=== PATIENT | male | born 1945 | race Caucasian/White ===

== ENCOUNTER 2016-03-03 08:20 | Inpatient (IN) | payer OTHER ==
[2016-02-03 10:20] VITALS: BMI 26.0
--- NOTE | 2016-02-03 11:08 | PAT Medication Instructions ---
Service Date Feb 03, 2016. Current Home Medication List Aspirin (Aspirin Ec), 81 MG PO HS Atorvastatin (Lipitor), 40 MG PO QAM Cholecalciferol (Vitamin D3), 1 CAP PO HS Cilostazol (Pletal), 100 MG PO BID Clopidogrel (Plavix), 75 MG PO QAM Metoprolol Tartrate (Lopressor) (Lopressor), 25 MG PO BID Multivitamin (Multivitamin), 1 TAB PO QPM Medication Instructions For Your Scheduled Surgery - Instructions to be given by Cardiology: Cilostazol (Pletal), 100 MG PO BID Clopidogrel (Plavix), 75 MG PO QAM - Take the following medications the morning of surgery with a sip of water OTHERWISE NOTHING TO EAT OR DRINK AFTER MIDNIGHT: Atorvastatin (Lipitor), 40 MG PO QAM Metoprolol Tartrate (Lopressor) (Lopressor), 25 MG PO BID - Take the following medications as scheduled the night before surgery: Multivitamin (Multivitamin), 1 TAB PO QPM Aspirin (Aspirin Ec), 81 MG PO HS Cholecalciferol (Vitamin D3), 1 CAP PO HS Metoprolol Tartrate (Lopressor) (Lopressor), 25 MG PO BID If you have any questions please call us at [phone] (Aparna Liao PA-C) or [phone] or [phone]
[2016-02-03 11:47] LABS: BASO % 0.4 %; BASO ABS # 0.04 K/uL (0-0.2); COMPLETE YES; EOS % 2.4 %; HEMATOCRIT 44.1 % (42-52); IG% 0.3 %; LYMPH % 24.9 %; LYMPH ABS # 2.25 K/uL (1.2-3.4); MEAN CELL VOLUME 89.8 fL (80-100); MEAN CORPUSCULAR HEMOGLOBIN 31.4 pg (25-34); MEAN CORPUSCULAR HGB CONC 34.9 g/dl (32-36); MEAN PLATELET VOLUME 9.8 fL (7.4-10.4); MONO % 7.9 %; NEUT % 64.1 %; PLATELET COUNT 244 K/uL (130-400); RED BLOOD COUNT 4.91 M/uL (4.7-6.1); WHITE BLOOD COUNT 9.03 K/uL (4.8-10.8)
[2016-02-03 12:03] LABS: PROTHROMBIN TIME (PATIENT) 11.1 SECONDS (9.0-12.0)
[2016-02-03 12:14] LABS: CREATININE 0.74 mg/dl (0.60-1.40)
[2016-02-03 12:15] LABS: BUN/CREATININE RATIO 18.9 (10-20); CALCIUM 9.2 mg/dl (8.5-10.1); POTASSIUM 4.4 mmol/L (3.5-5.1)
[2016-02-03 12:47] LABS: ESTIMATED AVERAGE GLUCOSE 120 mg/dl; HA1C FLAG Normal (Normal)
--- NOTE | 2016-02-27 21:41 | HISTORY & PHYSICAL EXAMINATION ---
DATE OF ADMISSION: 03/03/2016 SUBJECTIVE CHIEF COMPLAINT: Right shoulder pain. HISTORY OF PRESENT ILLNESS: The patient is a 70-year-old male who has had pain on and off in his right shoulder secondary to osteoarthritis and has failed conservative measures including injections, physical therapy, anti-inflammatory medications. He states that the pain is increased to the point where he is unable to perform his activities of daily living. The patient wishes to proceed with a right total shoulder arthroplasty. PAST MEDICAL HISTORY: MD on 11/03/2008, hypertension, hypercholesterolemia, mini stroke, peripheral artery disease, acid reflux, osteoarthritis, chronic back pain. PAST SURGICAL HISTORY: Includes stent placement in the circumflex artery on 11/03/2008, stent placed in the left femoral artery, left hip arthroplasty, left shoulder arthroplasty. SOCIAL HISTORY: The patient consumes 7 alcoholic beverages per week. Smokes a pack of cigarettes per day. He lives in a 2-story home and he is retired. He denies illegal or IV drug use. FAMILY HISTORY: Noncontributory. MEDICATIONS: Include Plavix 75 mg, atorvastatin 80 mg, cilostazol 100 mg, metoprolol 25 mg, vitamin D 2000 mg, aspirin low dose 81 mg, multivitamin. ALLERGIES: No known drug allergies. REVIEW OF SYSTEMS: Denies fevers, chills, headaches, weight loss, double vision, blurry vision, sore throat, hearing loss, tremors, dizziness, numbness, tingling, tired, thirsty, hot and cold intolerance, abdominal pain, nausea, vomiting, diarrhea, heartburn, chest pain, swelling into the legs or feet, frequency going to the bathroom, pain or burning with urination or incontinence, wheezing, cough, shortness of breath, depression, thoughts of harming himself or others, nervousness and anxiousness. He is positive for joint pain, stiffness and swelling in the right shoulder. OBJECTIVE: VITAL SIGNS: The patient is 6 feet tall, 195 pounds. Blood pressure 142/74. GENERAL: The patient is a 70-year-old male. He is awake, alert and oriented x3. He is well dressed, well nourished and in no acute distress. HEENT: Extraocular movements are intact. PERRLA, mucosa is moist. No septal deviation. NECK: Supple with no lymphadenopathy, no JVD or thyromegaly. HEART: Regular rate and rhythm with no gallops or murmurs. LUNGS: Clear to auscultation with no wheezing or rhonchi. ABDOMEN: Soft, nontender, nondistended. Normal bowel sounds throughout. No hepatosplenomegaly. EXTREMITIES: In particular attention to the patient's right shoulder, skin is intact without erythema. He has significant crepitus with decrease in range of motion on the right side, active forward flexion 0-90 degrees, abduction 0-90 degrees, external rotation 0-45 degrees. The patient has weakness in his rotator cuff. IMAGING: X-rays, 4 views of the patient's right shoulder show severe osteoarthritis with osteophyte formation of the inferior aspect of his humeral head, [id number] articulation. ASSESSMENT: Severe end-stage right shoulder osteoarthritis. PLAN: The patient is scheduled to have a right total shoulder arthroplasty. He has failed conservative measures including anti-inflammatories, cortisone injections and physical therapy. He is [id number] in his right shoulder and much more symptomatic currently. Risks and benefits to surgery were discussed that included but not limited to infection, DVT, pain, stiffness, need for revision surgery, damage to blood vessels, damage to nerves, failure to relieve all symptoms and anesthesia risks. The patient understands these risks and wishes to proceed. All questions were answered to his satisfaction. SIVAKUMAR
[~2016-03-03] VITALS: Ht 182.9 cm; Wt 88.6 kg
[~2016-03-03 08:20] MED LIST: ACETAMINOPHEN 500 MG TAB PO SCH; ASPI81TA28 PO; ATOR-26 PO; BUPIVACAINE/EPINEPHRINE 0.25% 1:200,000 30 ML VIAL ONE; CEFAZOLIN 2000 MG/60 ML D5W 60 ML IV SCH; CHOL2000 PO; CILO100T PO; CLOP1TAB15 PO; CeleBREX 200 MG CAP PO SCH; DEXAMETHASONE 4 MG TAB PO SCH; DEXAMETHASONE SOD INJ 4 MG/ML VIAL ONE; FAMOTIDINE 20 MG TAB PO SCH; GABAPENTIN 300 MG CAP PO SCH; LACTATED RINGER'S 1000ML 1,000 ML IV SCH; LACTATED RINGER'S 1000ML IV SCH; METO25TA56 PO; METOCLOPRAMIDE HCL 10 MG TAB PO SCH; MULT-506 PO; ROPIVACAINE 5MG/ML 30 ML 150 MG, BUPIVACAINE/EPINEPHR 0.5% MPF 30 ML, KETOROLAC TROMETH... INFIL SCH
[2016-03-03 08:39] VITALS: BP 148/70; PULSE 75; TEMP 36.4; O2SAT 97; Ht 182.9 cm; Wt 88.6 kg
--- NOTE | 2016-03-03 10:12 | History & Physical Bridge Note ---
H&P Re-Evaluation Bridge Note: I have examined the patient, reviewed the History & Physical and in the interval since the performance of the History & Physical I have noted the following changes of clinical significance: No changes noted
[2016-03-03] MEDS ORDERED: FENTANYL CITRATE INJ 50 MCG/1 ML 2 ML VIAL IV PRN (10:15)
[2016-03-03] MEDS ORDERED: HYDROmorphone INJ 1 MG/ML SYR IV PRN (10:15)
[2016-03-03] MEDS ORDERED: ATROPINE SULFATE 0.1 MG/ML 5ML SYR IV PRN (10:15)
[2016-03-03] MEDS ORDERED: ONDANSETRON INJ 2 MG/ML 2 ML VIAL IV PRN ×2 (10:15→16:15)
[2016-03-03] MEDS ORDERED: PROMETHAZINE HCL INJ 6.25 MG in SODIUM CHLORIDE 0.9% 50ML 50 ML IV PRN (10:15)
[2016-03-03] MEDS ORDERED: EpHEDrine SULFATE INJ 50 MG/ML AMP IV PRN (10:15)
[2016-03-03] MEDS ORDERED: GLYCOPYRROLATE INJ 0.2 MG/ML VIAL ONE (10:18)
[2016-03-03] MEDS ORDERED: MIDAZOLAM HCL 1 MG/ML 2ML VIAL ONE ×2 (10:18→10:19)
[2016-03-03] MEDS ORDERED: DEXAMETHASONE SOD INJ 4 MG/ML VIAL ONE (10:18)
[2016-03-03] MEDS ORDERED: FENTANYL CITRATE INJ 50 MCG/1 ML 2 ML VIAL ONE ×2 (10:18)
[2016-03-03] MEDS ORDERED: PROPOFOL IV EMULSION 10 MG/ML 20 ML VIAL IV ONE (10:18)
[2016-03-03] MEDS ORDERED: ONDANSETRON INJ 2 MG/ML 2 ML VIAL ONE (10:18)
[2016-03-03] MEDS ORDERED: NEOSTIGMINE METHYLSULFATE 5 MG/5 ML SYR ONE (10:18)
[2016-03-03] MEDS ORDERED: LIDOCAINE HCL 2% 2 ML VIAL (20MG/ML) ONE (10:18)
[2016-03-03] MEDS ORDERED: EpHEDrine SULFATE INJ 50 MG/ML AMP ONE (10:18)
[2016-03-03] MEDS ORDERED: PHENYLEPHRINE HCL INJ 10 MG/ML VIAL ONE (10:18)
[2016-03-03] MEDS ORDERED: ROCURONIUM BROMIDE 10 MG/ML 5 ML VIAL ONE (10:18)
[2016-03-03] MEDS ORDERED: ORTHO JOINT ANESTHETIC ONE (12:06)
[2016-03-03] MEDS ORDERED: LARYING-O-JET KIT (LTA) EXT ONE ×2 (14:36)
[2016-03-03] MEDS ORDERED: THROMBIN FOR SOLN 20000 UNIT KIT TOP ONE (14:43)
[2016-03-03] MEDS ORDERED: BACITRACIN 50000 UNIT VIAL IR ONE (15:51)
[2016-03-03] MEDS ORDERED: POVIDONE-IODINE OP SOLN 30 ML BTL TOP ONE (15:53)
--- NOTE | 2016-03-03 16:02 | [facility] Post Operative Brief Note ---
Immediate Operative Summary Operative Date Mar 03, 2016. Pre-Operative Diagnosis Severe End-Stage Osteoarthritis, Right Shoulder Post-Operative Diagnosis Same as preoperative, plus tear biceps Procedure(s) Performed Right Total Shoulder Arthroplasty, Augmented Glenoid, biceps tenodesis Surgeon Dr. Tacho Ford Holistic Pulser Surgeon(s) Aston Aguilar PA-C Estimated Blood Loss 100 Findings above, severe posterior glenoid wear Specimens A.) Right Humeral Head Bone Fragments Drains 1 hemovac Anesthesia geta, interscalene Complication(s) None Disposition Recovery Room / PACU
[2016-03-03] MEDS ORDERED: MAGNESIUM HYDROXIDE SUSP 30 ML UDC PO PRN (16:15)
[2016-03-03] MEDS ORDERED: METOCLOPRAMIDE HCL INJ 5 MG/ML 2 ML VIAL IV PRN (16:15)
[2016-03-03] MEDS ORDERED: ZOLPIDEM TARTRATE 5 MG TAB PO PRN (16:15)
[2016-03-03] MEDS ORDERED: ALUMINUM/MAGNESIUM SUSP 30 ML UDC PO PRN (16:15)
[2016-03-03] MEDS ORDERED: MoRPHine SULFATE 2 MG/ML CARP IV PRN (16:15)
[2016-03-03] MEDS ORDERED: OXYCODONE HCL IR 5 MG TAB (IMMEDIATE RELEASE) PO PRN (16:15)
--- NOTE | 2016-03-03 16:59 | DIAGNOSTIC IMAGING REPORT ---
RIGHT SHOULDER MIN 2 VIEWS ROUTINE CLINICAL HISTORY: Postop study. Post shoulder reduction. COMPARISON: None. DISCUSSION: There are postsurgical changes of a total right shoulder arthroplasty. There is air within soft tissues consistent with recent surgery. There are overlying skin justin. There is no dislocation. There are no acute fractures. There is mild interstitial thickening within the right lung. IMPRESSION: Postsurgical changes of a right shoulder arthroplasty. No evidence of dislocation. Electronically signed by: Larry Deluna M.D. 03/03/2016 4:58 PM Dictated Date/Time: 03/03/2016 4:56 PM
--- NOTE | 2016-03-03 17:04 | Anesthesiology Progress Note ---
Anesthesia Post Op Note Date & Time Mar 03, 2016 at 17:04 Vital Signs Pain Intensity: 0 Vital Signs Past 12 Hours Date Time Temp Pulse Resp B/P Pulse Ox O2 Delivery O2 Flow Rate FiO2 03/03/16 16:37 36.0 78 16 130/60 98 Mask 10 03/03/16 08:39 36.4 75 20 148/70 97 Room Air Notes Mental Status: alert / awake / arousable, participated in evaluation Pt Amnestic to Procedure: Yes Nausea / Vomiting: adequately controlled Pain: adequately controlled Airway Patency, RR, SpO2: stable & adequate BP & HR: stable & adequate Hydration State: stable & adequate Anesthetic Complications: no major complications apparent
[2016-03-03] MEDS ORDERED: CITRIC ACID/SODIUM CITRATE 15 ML UDC PO ONE (17:30)
[2016-03-03] MEDS ORDERED: NURSING VERBAL MED ORDER ONE (17:30)
[2016-03-03] MEDS ORDERED: FERROUS GLUCONATE 324 MG TAB PO SCH (18:00)
[2016-03-03 19:05] VITALS: BP 125/75; PULSE 93; TEMP 36.3; O2SAT 98
[2016-03-03 19:07] VITALS: BP 112/65; PULSE 80; TEMP 36.5; O2SAT 16
--- NOTE | 2016-03-03 19:15 | Medical Consult ---
History General Date of Service: Mar 03, 2016. Stated Complaint: Right Shoulder Osteoarthritis HPI The patient is a 70 year old male who presents to [facility] with complaints of Right Shoulder Osteoarthritis. The patient's primary care provider is Tommy Parry M.D.. this is a 70 yo Male with past medical hx of CAD /IN in 11/03/2008 s/p PTCA on left circumflex artery hx of PVD s/p stent placement on left femoral artery , TIA /mini stroke in 2009 with no residual neurological deficit underwent Rt total shoulder replacement surgery today for chronic severe DJD pt seen post op in room 324 denies of any pain or discomfort Rt shoulder pain well controlled , no complain of chest pain or SOB Historian: patient Review of Systems Constitutional: reports: no symptoms Eyes: reports: no symptoms ENT: reports: no symptoms Cardiovascular: reports: no symptoms Respiratory: reports: no symptoms Gastrointestinal: reports: no symptoms Genitourinary - Male: reports: no symptoms Musculoskeletal: reports: other (s/p rt shoulder surgery for chronic DJD ) Neurologic: reports: no symptoms Psychiatric: reports: no symptoms All Other Symptoms All Other Systems: Reviewed and Negative Past Medical History Past Medical History: IN on 11/03/2008 S/P PTCA in circumflex artery hypertension, hypercholesterolemia, mini stroke, peripheral artery disease, acid reflux, osteoarthritis, chronic back pain. Past Surgical History: PAST SURGICAL HISTORY: Includes stent placement in the circumflex artery on 11/03/2008, stent placed in the left femoral artery, left hip arthroplasty, left shoulder arthroplasty. Family History FH: early coronary artery disease Social History Hx Tobacco Use In Past Year?: Yes (1 PPD, X 60YEARS) Smoking Status: Current Every Day Smoker Marital status: Occupational Status: retired Allergies Coded Allergies: No Known Allergies (Unverified , 03/03/16) Current Medications Reported Home Medications Medications Dose Route/Sig Max Daily Dose Days Date Category Lopressor (Metoprolol Tartrate) 25 Mg Tab 25 Mg PO BID 02/03/16 Reported Lipitor (Atorvastatin Calcium) 80 Mg Tab 40 Mg PO QAM 02/03/16 Reported Aspirin Ec (Aspirin) 81 Mg Tab 81 Mg PO HS 04/29/15 Reported Multivitamin (Multivitamins) Tab 1 Tab PO QPM 04/29/15 Reported Vitamin D3 (Cholecalciferol) 2,000 Unit Cap 1 Cap PO HS 90 3/24/16 Reported Pletal (Cilostazol) 100 Mg Tab 100 Mg PO BID 04/29/15 Reported Plavix (Clopidogrel Bisulfate) 75 Mg Tab 75 Mg PO QAM 04/29/15 Reported Physical Physical Exam Vital Signs: Date Time Temp Pulse Resp B/P Pulse Ox O2 Delivery O2 Flow Rate FiO2 03/03/16 19:07 36.5 80 16 112/65 16 Nasal Cannula 2.0 03/03/16 19:05 36.3 93 17 125/75 98 Nasal Cannula 2.0 03/03/16 17:55 79 19 95 03/03/16 17:55 77 19 03/03/16 17:53 116/69 03/03/16 17:50 82 20 03/03/16 17:50 80 20 94 03/03/16 17:48 110/56 03/03/16 17:45 79 18 03/03/16 17:45 83 18 92 03/03/16 17:44 119/64 03/03/16 17:40 68 14 95 03/03/16 17:40 69 14 03/03/16 17:39 118/63 03/03/16 17:35 78 19 03/03/16 17:35 77 19 94 03/03/16 17:33 118/65 03/03/16 17:30 72 13 03/03/16 17:30 73 13 94 03/03/16 17:29 68 15 03/03/16 17:29 68 15 95 03/03/16 17:28 108/60 03/03/16 17:27 36.4 03/03/16 17:24 68 17 95 03/03/16 17:24 67 17 03/03/16 17:23 118/67 03/03/16 17:19 79 16 94 03/03/16 17:19 77 16 03/03/16 17:18 108/64 03/03/16 17:14 72 17 94 03/03/16 17:14 68 17 03/03/16 17:13 116/75 03/03/16 17:12 73 15 95 03/03/16 17:12 74 15 03/03/16 17:08 98/70 03/03/16 17:07 79 17 93 03/03/16 17:07 76 17 03/03/16 17:03 105/55 03/03/16 17:02 68 16 99 03/03/16 17:02 66 16 03/03/16 16:58 112/60 03/03/16 16:57 60 17 99 03/03/16 16:57 60 17 03/03/16 16:53 102/87 03/03/16 16:52 79 17 98 03/03/16 16:52 79 17 03/03/16 16:48 95/59 03/03/16 16:47 69 18 03/03/16 16:47 69 18 99 03/03/16 16:44 106/53 03/03/16 16:42 67 18 97 03/03/16 16:42 67 18 03/03/16 16:38 123/58 03/03/16 16:37 75 17 03/03/16 16:37 36.0 78 16 130/60 98 Mask 10 03/03/16 16:37 75 17 96 03/03/16 08:39 36.4 75 20 148/70 97 Room Air General Appearance: WELL-APPEARING, NO APPARENT DISTRESS Head: NORMOCEPHALIC, ATRAUMATIC Eyes: PERRLA, EOMI Neck: NORMAL RANGE OF MOTION, TRACHEA MIDLINE, SUPPLE Respiratory: BREATH SOUNDS NORMAL, CLEAR TO AUSCULTATION Cardiovasular: REGULAR RATE/RHYTHM, NORMAL S1S2 Abdomen: NON TENDER, NORMAL BOWEL SOUNDS Upper Extremities: other (rt shoulder surgery , bandage /drain present ) Lower Extremities: NO EDEMA Neuro: ALERT, ORIENTED x 3, NORMAL SPEECH Impression Assessment and Plan RT SHOULDER SURGERY : -S/P rt total shoulder arthroplasty due to severe DJD -POD # 0 -recovering well post op -post op pain adequately controlled -cont management as per Ortho HX OF CAD S/P PTCA : no complain of chest pain or SOB pt mentions 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 surgery found to be in stable cardiac condition cont all cardiac meds -Aspirin , Plavix , Beta angelo , statin HX OF TIA /MINI STROKE on Plavix , aspirin , statin PVD : on Plavix , aspirin ONGOING TOBACCO ABUSE continues to smoke 1 pk /cig a day smoking cessation counselling provided pt is updated regarding high risk of co morbidities -specially with his hx of CAD /PVD /CVA aware willing to cut down smoking not requesting nicotine patch FULL CODE DVT PROPHYLAXIS : Thank you for allowing to participate in care of the pt we will continue to follow the patient during his hospital course Dr Macias will follow the patient from tomorrow 03/04/16 Admit To Med/Surg
[2016-03-03 20:20] VITALS: BP 132/78; PULSE 87; O2SAT 93
[2016-03-03] MEDS: CEFAZOLIN IV 2,000 MG in DEXTROSE 5% 50ML 50 ML IV SCH (20:25)
[2016-03-03] MEDS: D5W AND 1/2NSS + 20MEQ KCL 1,000 ML IV SCH (20:25)
[2016-03-03] MEDS: KETOROLAC TROMETHAMINE 15 MG/ML VIAL IV. SCH (20:29)
[2016-03-03] MEDS: OXYCODONE HCL 10 MG TABCR (OXYCONTIN) PO SCH (20:31)
[2016-03-03] MEDS: CILOSTAZOL 100 MG TAB PO SCH (20:32)
[2016-03-03] MEDS: METOPROLOL TARTRATE 25 MG TAB PO SCH (20:33)
[2016-03-03] MEDS ORDERED: ASPIRIN 81 MG ECTAB PO SCH (21:00)
[2016-03-03] MEDS ORDERED: MULTIVITAMIN TAB PO SCH (21:00)
[2016-03-03] MEDS ORDERED: CHOLECALCIFEROL 1000 INTER.UNIT TAB PO SCH (21:00)
[2016-03-03 21:07] VITALS: BP 147/85; PULSE 92; O2SAT 95
[2016-03-03] MEDS: ACETAMINOPHEN 500 MG TAB PO SCH (22:00)
[2016-03-03 23:42] VITALS: BP 116/62; PULSE 81; TEMP 36.9; O2SAT 93
[2016-03-04] MEDS: KETOROLAC TROMETHAMINE 15 MG/ML VIAL IV. SCH ×2 (01:44→07:47)
[2016-03-04 03:45] VITALS: BP 133/67; PULSE 65; TEMP 36.7; O2SAT 93
[2016-03-04] MEDS: CEFAZOLIN IV 2,000 MG in DEXTROSE 5% 50ML 50 ML IV SCH (03:52)
[2016-03-04] MEDS: D5W AND 1/2NSS + 20MEQ KCL 1,000 ML IV SCH (05:41)
[2016-03-04] MEDS: ACETAMINOPHEN 500 MG TAB PO SCH (05:41)
[2016-03-04 06:26] LABS: HEMATOCRIT 34.1 % (42-52); MEAN CORPUSCULAR HEMOGLOBIN 31.3 pg (25-34); MEAN CORPUSCULAR HGB CONC 35.2 g/dl (32-36); MEAN PLATELET VOLUME 10.2 fL (7.4-10.4); PLATELET COUNT 185 K/uL (130-400); RED BLOOD COUNT 3.83 M/uL (4.7-6.1)
[2016-03-04 07:01] LABS: BUN/CREATININE RATIO 21.2 (10-20); CALCIUM 8.3 mg/dl (8.5-10.1); CREATININE 0.85 mg/dl (0.60-1.40); POTASSIUM 4.2 mmol/L (3.5-5.1)
[2016-03-04 07:28] VITALS: BP 111/67; PULSE 74; TEMP 36.7; O2SAT 93
[2016-03-04 08:00] VITALS: O2SAT 93
[2016-03-04 08:40] VITALS: BP 109/66; PULSE 83
[2016-03-04] MEDS: METOPROLOL TARTRATE 25 MG TAB PO SCH (08:41)
[2016-03-04] MEDS: OXYCODONE HCL 10 MG TABCR (OXYCONTIN) PO SCH (08:42)
[2016-03-04] MEDS: CILOSTAZOL 100 MG TAB PO SCH (08:42)
[2016-03-04] MEDS ORDERED: CLOPIDOGREL BISULFATE 75 MG TAB PO SCH (09:00)
[2016-03-04] MEDS ORDERED: MULTIVITAMIN TAB PO SCH (09:00)
[2016-03-04] MEDS ORDERED: PANTOprazole SOD 40 MG TAB PO SCH (09:00)
[2016-03-04] MEDS ORDERED: ATORVASTATIN 40 MG TAB PO SCH (09:00)
--- NOTE | 2016-03-04 09:54 | Orthopedic Progress Note ---
Orthopedic Progress Note Date of Service Mar 04, 2016. Subjective Post OP Day: 1 Reports: feeling well, pain controlled w PO medications, Denies: SOB, calf pain , chest pain, light headedness, nausea / vomiting Objective calves soft nontender, N/V intact, capillary refill less than 2 sec., dressing C /D/I, A&O x3, toes mobile, hemovac drainage Date Time Temp Pulse Resp B/P Pulse Ox O2 Delivery O2 Flow Rate FiO2 03/04/16 08:40 83 109/66 03/04/16 07:28 36.7 74 19 111/67 93 Room Air 03/04/16 03:45 36.7 65 16 133/67 93 Room Air 03/03/16 23:42 36.9 81 18 116/62 93 Room Air 03/03/16 23:25 Room Air 03/03/16 21:07 92 16 147/85 95 Room Air 03/03/16 20:20 87 16 132/78 93 Nasal Cannula 3.0 03/03/16 19:07 36.5 80 16 112/65 16 Nasal Cannula 2.0 03/03/16 19:05 36.3 93 17 125/75 98 Nasal Cannula 2.0 03/03/16 18:05 Nasal Cannula 2.0 03/03/16 18:05 98 Nasal Cannula 2.0 03/03/16 17:55 79 19 95 03/03/16 17:55 77 19 03/03/16 17:53 116/69 03/03/16 17:50 82 20 03/03/16 17:50 80 20 94 03/03/16 17:48 110/56 03/03/16 17:45 79 18 03/03/16 17:45 83 18 92 03/03/16 17:44 119/64 03/03/16 17:40 68 14 95 03/03/16 17:40 69 14 03/03/16 17:39 118/63 03/03/16 17:35 78 19 03/03/16 17:35 77 19 94 03/03/16 17:33 118/65 03/03/16 17:30 72 13 03/03/16 17:30 73 13 94 03/03/16 17:29 68 15 03/03/16 17:29 68 15 95 03/03/16 17:28 108/60 03/03/16 17:27 36.4 03/03/16 17:24 68 17 95 03/03/16 17:24 67 17 03/03/16 17:23 118/67 03/03/16 17:19 79 16 94 03/03/16 17:19 77 16 03/03/16 17:18 108/64 03/03/16 17:14 72 17 94 03/03/16 17:14 68 17 03/03/16 17:13 116/75 03/03/16 17:12 73 15 95 03/03/16 17:12 74 15 03/03/16 17:08 98/70 03/03/16 17:07 79 17 93 03/03/16 17:07 76 17 03/03/16 17:03 105/55 03/03/16 17:02 68 16 99 03/03/16 17:02 66 16 03/03/16 16:58 112/60 03/03/16 16:57 60 17 99 03/03/16 16:57 60 17 03/03/16 16:53 102/87 03/03/16 16:52 79 17 98 03/03/16 16:52 79 17 03/03/16 16:48 95/59 03/03/16 16:47 69 18 03/03/16 16:47 69 18 99 03/03/16 16:44 106/53 03/03/16 16:42 67 18 97 03/03/16 16:42 67 18 03/03/16 16:38 123/58 03/03/16 16:37 75 17 03/03/16 16:37 36.0 78 16 130/60 98 Mask 10 03/03/16 16:37 75 17 96 Laboratory Results 24 Hours: Test 03/04/16 05:52 Hematocrit 34.1 % Hemoglobin 12.0 g/dL Assessment & Plan Assessment: Right Total Shoulder Arthroplasty, Augmented Glenoid, biceps tenodesis Inhouse Planning Pain Management: Oxycontin, PO Tylenol, Oxy IR DVT Prophylaxis: TEDs, SCDs, ASA, other Discharge Planning Discharge Planning: home with oppt Pain Management: Oxycontin, PO Tylenol, Oxy IR DVT Prophylaxis: TEDs, ASA, other Therapy: Physical Therapy
[2016-03-04] MEDS ORDERED: RXC5 PO (09:56)
[2016-03-04] MEDS ORDERED: OXYSR10 PO (09:56)
[2016-03-04] MEDS ORDERED: ONDA8TAB6 PO (09:56)
[2016-03-04] MEDS ORDERED: ACET-1138 PO (09:56)
[2016-03-04] MEDS ORDERED: CLB200 PO (09:56)
--- NOTE | 2016-03-04 09:57 | Discharge Instructions ---
Discharge Instructions Admission Reason for Admission: Right Shoulder Osteoarthritis Discharge Discharge Diagnosis / Problem: Right Total Shoulder Arthroplasty, Augmented Glenoid, biceps tenodesis Discharge Goals Goal(s): Decrease discomfort, Improve function, Increase independence, Therapeutic intervention Activity Recommendations Activity Limitations: per Instructions/Follow-up section ACTIVITY RECOMMENDATIONS: SELF CARE INSTRUCTIONS AFTER TOTAL SHOULDER ARTHROPLASTY A. You may do daily exercises as taught in physical therapy while in hospital. No lifting with the operative arm. Please schedule your outpatient physical therapy appointment to begin within 2-3 days after leaving the hospital. Specific restrictions will be written on your physical therapy prescription that is provided to you. B. You are to wear your sling/immobilizer at all times EXCEPT when performing your daily exercises, participating in physical therapy and for hygiene purposes. C. You may perform dry, daily dressing changes. Please keep your incision covered. You may shower 48 hours after surgery. Do not apply soap or any ointment/ lotions directly over incision. Do not soak incision in bath tub/swimming pool. D. You may use ice as needed to operative shoulder. SPECIAL CARE INSTRUCTIONS: MEDICATION INSTRUCTIONS: *It is recommended you take Aspirin 325mg daily for four weeks post-op. VERY IMPORTANT TO READ AND REVIEW A. There are a few signs you need to watch for after you are home. Call [facility] at [phone] if you experience any of the followin. Increased severe shoulder pain. Some pain is expected especially when you exercise. 2. Increased swelling in you shoulder or arm; pain or swelling in either upper extremity. 3. Any fluid drainage from the incision. 4. Shortness of breath or chest pain. B. Please call [facility] at [phone] if you have any questions or concerns about your operation or recovery. C. Call your physician if: 1. Temperature is greater than 101 degrees (F). 2. Pain is not relieved by prescribed pain medications. 3. Increase drainage or redness from incision. 4. Unanswered questions or concerns. FOLLOW UP VISIT: Please call [facility] at [phone] to schedule a follow up appointment with Dr. Baker or his PA in 12-14 days from your surgery date. . Current Hospital Diet Patient's current hospital diet: Regular Diet Discharge Diet Recommended Diet: Regular Diet Procedures Procedures Performed: Right Total Shoulder Arthroplasty, Augmented Glenoid, biceps tenodesis Pending Studies Studies pending at discharge: no Laboratory Results Hemoglobin A1c Test 02/03/16 11:14 Range/Units Estimated Average Glucose 120 mg/dl Hemoglobin A1c 5.8 H 4.5-5.6 % Medical Emergencies . Who to Call and When: Medical Emergencies: If at any time you feel your situation is an emergency, please call 911 immediately. . Non-Emergent Contact Non-Emergency issues call your: Primary Care Provider . "Provider Documentation" section prepared by Rachelle Singleton. VTE Core Measure Inpt VTE Proph given/why not?: Other Anticoagulation, T.E.D. Stockings, SCD's
[2016-03-04 11:07] VITALS: BP 109/66; PULSE 83; TEMP 36.7; O2SAT 93
--- NOTE | 2016-03-04 16:00 | Progress Note ---
Internal Med Progress Note Date of Service: Mar 04, 2016. Provider Documentation: SUBJECTIVE: Patient is sitting in the chair in no apparent distress. Pain has been tolerable. No other new change or complaint. OBJECTIVE: Vital Signs-as noted below Examination: General Appearance: Alert/Awake and is in no apparent distress. Head: Normocephalic, Atraumatic. Eyes: PERRLA, EOMI ENT: Ears, Nose, Throat are normal looking. Neck: Supple, Midline trachea, No JVD. Respiratory: B/L Clear to auscultation. Cardiovascular: Regular rate, Normal S1,S2. Abdomen: Soft, Non-tender, Normal BS present. Upper Extremities: other (rt shoulder surgery , bandage /drain present ) Lower Extremities: Moderate pulses present, No edema. Neuro: Alert & Oriented X 3. Lab data as noted below. ASSESSMENT & PLAN: S/P Right Shoulder Surgery: S/P rt total shoulder arthroplasty due to severe DJD. POD # 1. Clinically & hemodynamically doing well. -Post op pain adequately controlled -Continue management as per Ortho HX OF CAD S/P PTCA : Stable. No acute cardiac symptoms. 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 -Continue Plavix , aspirin , statin History PVD : Stable. Continue Plavix , Aspirin. Ongoing Tobacco Use: Continues to smoke 1 pk /cig a day -Smoking cessation counselling provided> Patient is updated regarding high risk of co morbidities -specially with his hx of CAD /PVD /CVA. Willing to cut down smoking -Not requesting nicotine patch Code Status: FULL CODE DVT Prophylaxis :As per Surgical Team. Thank you for allowing to participate in care of the pt we will continue to follow the patient during his hospital course Medical conditions are essentially stable. Vital Signs: Date Time Temp Pulse Resp B/P Pulse Ox O2 Delivery O2 Flow Rate FiO2 03/04/16 11:07 36.7 83 19 93 Room Air 03/04/16 08:40 83 109/66 03/04/16 08:00 93 Room Air 03/04/16 07:28 36.7 74 19 111/67 93 Room Air 03/04/16 03:45 36.7 65 16 133/67 93 Room Air 03/03/16 23:42 36.9 81 18 116/62 93 Room Air 03/03/16 23:25 Room Air 03/03/16 21:07 92 16 147/85 95 Room Air 03/03/16 20:20 87 16 132/78 93 Nasal Cannula 3.0 03/03/16 19:07 36.5 80 16 112/65 16 Nasal Cannula 2.0 03/03/16 19:05 36.3 93 17 125/75 98 Nasal Cannula 2.0 03/03/16 18:05 Nasal Cannula 2.0 03/03/16 18:05 98 Nasal Cannula 2.0 03/03/16 17:55 79 19 95 03/03/16 17:55 77 19 03/03/16 17:53 116/69 03/03/16 17:50 82 20 03/03/16 17:50 80 20 94 03/03/16 17:48 110/56 03/03/16 17:45 79 18 03/03/16 17:45 83 18 92 03/03/16 17:44 119/64 03/03/16 17:40 68 14 95 03/03/16 17:40 69 14 03/03/16 17:39 118/63 03/03/16 17:35 78 19 03/03/16 17:35 77 19 94 03/03/16 17:33 118/65 03/03/16 17:30 72 13 03/03/16 17:30 73 13 94 03/03/16 17:29 68 15 03/03/16 17:29 68 15 95 03/03/16 17:28 108/60 03/03/16 17:27 36.4 03/03/16 17:24 68 17 95 03/03/16 17:24 67 17 03/03/16 17:23 118/67 03/03/16 17:19 79 16 94 03/03/16 17:19 77 16 03/03/16 17:18 108/64 03/03/16 17:14 72 17 94 03/03/16 17:14 68 17 03/03/16 17:13 116/75 03/03/16 17:12 73 15 95 03/03/16 17:12 74 15 03/03/16 17:08 98/70 03/03/16 17:07 79 17 93 03/03/16 17:07 76 17 03/03/16 17:03 105/55 03/03/16 17:02 68 16 99 03/03/16 17:02 66 16 03/03/16 16:58 112/60 03/03/16 16:57 60 17 99 03/03/16 16:57 60 17 03/03/16 16:53 102/87 03/03/16 16:52 79 17 98 03/03/16 16:52 79 17 03/03/16 16:48 95/59 03/03/16 16:47 69 18 03/03/16 16:47 69 18 99 03/03/16 16:44 106/53 03/03/16 16:42 67 18 97 03/03/16 16:42 67 18 03/03/16 16:38 123/58 03/03/16 16:37 75 17 03/03/16 16:37 36.0 78 16 130/60 98 Mask 10 03/03/16 16:37 75 17 96 Lab Results: Results Past 24 Hours Test 03/04/16 05:52 Range/Units White Blood Count 17.60 4.8-10.8 K/uL Red Blood Count 3.83 4.7-6.1 M/uL Hemoglobin 12.0 14.0-18.0 g/dL Hematocrit 34.1 42-52 % Mean Corpuscular Volume 89.0 80-100 fL Mean Corpuscular Hemoglobin 31.3 25-34 pg Mean Corpuscular Hemoglobin Concent 35.2 32-36 g/dl RDW Standard Deviation 41.5 36.4-46.3 fL RDW Coefficient of Variation 12.8 11.5-14.5 % Platelet Count 185 130-400 K/uL Mean Platelet Volume 10.2 7.4-10.4 fL Sodium Level 137 136-145 mmol/L Potassium Level 4.2 3.5-5.1 mmol/L Chloride Level 104 98-107 mmol/L Carbon Dioxide Level 22 21-32 mmol/L Anion Gap 11.0 3-11 mmol/L Blood Urea Nitrogen 18 7-18 mg/dl Creatinine 0.85 0.60-1.40 mg/dl Est Creatinine Clear Calc Drug Dose 87.5 ml/min Estimated GFR () 101.6 Estimated GFR (Non- 87.7 BUN/Creatinine Ratio 21.2 10-20 Random Glucose 172 70-99 mg/dl Calcium Level 8.3 8.5-10.1 mg/dl
[2016-03-04] MEDS ORDERED: CeleBREX 200 MG CAP PO SCH (21:00)
--- NOTE | 2016-03-06 07:05 | OPERATIVE REPORT ---
DATE OF OPERATION: 03/03/2016 PREOPERATIVE DIAGNOSIS: Right shoulder degenerative joint disease. POSTOPERATIVE DIAGNOSES: Same plus tear long head of the biceps tendon. PROCEDURE: Right total shoulder arthroplasty with the posterior augment glenoid and biceps tenodesis. SURGEON: Tacho Ford MD FI[employer]INKLER INSTALLER: Aston Aguilar PA-C who was necessary for assistance in procedure with positioning, prepping, draping, retraction and closure. ANESTHESIA: General endotracheal anesthesia with interscalene block. SPECIMEN: Humeral head. IMPLANTS: Exactech Equinoxe 13 mm stem, right large 8 degree posterior augment pegged glenoid, 4.5 mm replicator plate, 50 mm tall head. DRAINS: One medium Hemovac. ESTIMATED BLOOD LOSS: 100 mL. COMPLICATIONS: None. INDICATIONS FOR PROCEDURE: The patient is a 70-year-old male with longstanding osteoarthritic change in the right shoulder. He has failed conservative measures including injection, anti-inflammatories and rehab. Failing conservative measures, he wished to proceed with right total shoulder arthroplasty. Risks, benefits, and alternatives of surgery including but not limited to infection, DVT, pain, stiffness, need for urgent surgery, failure to relieve all symptoms, damage to blood vessels, damage to nerves, risks of anesthesia were discussed with the patient and he wished to proceed. DESCRIPTION OF PROCEDURE: The patient was identified, laterality was confirmed and marked. He received a preoperative antibiotic as well as interscalene block. He was transferred to the operating room, placed in supine position, induced with general endotracheal anesthesia per the anesthesia staff. He was then safely transferred to a beach chair position with the [facility] chair positioner. The arm was secured with the spider. Right shoulder was prepped and draped in usual sterile manner with ChloraPrep. I made a longitudinal incision just lateral to coracoid, sharply incised the skin utilizing Bovie electrocautery to achieve hemostasis. I identified the fat stripe. I identified the cephalic vein and mobilized cephalic vein laterally with the deltoid. I incised a small portion of the upper part of the pec tendon and mobilized the deltoid and pectoralis. Bursa was excised and incised into the sheath of the long head of biceps tendon and he had significant tearing along the long head of the biceps tendon proximally. I performed in situ biceps tenodesis with interrupted #2 FiberWire sutures and then excised the torn tendinotic portion proximally. I then elevated the subscapularis in a peel type fashion and tagged it with #1 Ethibond sutures. He had a fairly large goat zhu inferior osteophyte off the humeral head. This was excised using a combination of rongeur as well as Artisan chisel. I then pinned into place my humeral cutting guide and made my humeral resection. He had a fairly significant cystic lesion within the humeral head with the bony defect within the femoral head centrally and extending posteriorly measured about 3 cm in length, 2 cm in width. I sequentially reamed up to a size 13 stem and sequentially broached up to a size 13. We had good stability with this down even with the cystic defect. I placed 11 trial into position. I then excised the glenoid labrum. He had fairly significant posterior glenoid wear as well as medialization of the glenoid. I elected to utilize an 8 degree posterior augmented glenoid. I placed the drill guide for this and made my central hole and then I still needed to ream a bit eccentrically on the high anterior side. I then drilled 3 peripheral holes. We reamed up to a size large and then excised osteophytes around the glenoid with an Artisan chisel. The glenoid vault was washed and dried with thrombin-soaked sponges and then with Palacos G cement, I cemented my definitive poly. This was an 8 degree size large posterior augmented pegged glenoid. It hold the glenoid into position as the cement cured. I then turned my attention back to the humeral side. Drilled 3 holes and passed three #2 FiberWire sutures through the lesser tuberosity and I looped these around my definitive stem and then impacted my definitive 13 mm stem. I then placed my 4.5 mm replicator plate into position and sized for a size 50 as well as compared to a size 47 and we had better coverage and got better soft tissue balancing with the 50 mL. I then reduced the shoulder. The short head was still a little bit posteriorly unstable, so we upsized the 50 mm tall head. This gave us much better soft tissue balancing and posterior stability. The trial components were removed. The deep tissues were anesthetized with ortho mix solution. The wound was again thoroughly irrigated. I locked the replicator plate into place with a torque-limiting screw, impacted the humeral head into place, and then reduced the shoulder. I then repaired the subscapularis with the #2 FiberWire sutures for my medial row and then a running #5 FiberWire laterally for my lateral row. I then repaired the rotator interval with interrupted #2 FiberWire sutures. A deep drain was placed. The deltopectoral interval was closed with interrupted #1 Ethibond sutures, subcutaneous tissues with interrupted 2-0 Vicryl suture and skin with justin. Sterile dressing was applied and sling placed. All needle and sponge counts were correct at the end of procedure. The patient was transferred to PACU in stable condition without apparent complication. I attest to the content of the Intraoperative Record and any orders documented therein. Any exceptio ns are noted below.
--- NOTE | 2016-03-07 16:54 | DISCHARGE SUMMARY ---
ADMISSION DIAGNOSIS: Right shoulder osteoarthritis. DISCHARGE DIAGNOSIS: Right total shoulder arthroplasty, augmented glenoid biceps tenodesis. CONSULTS: Dr. Parag Macias. PROCEDURES: On 03/03/2016 the patient underwent right total shoulder arthroplasty, augmented glenoid biceps tenodesis. HISTORY OF PRESENT ILLNESS: The patient is a 70-year-old male that presented with right shoulder pain. Pain continued to get progressively worse over time. He has failed conservative therapy which includes nonsteroidal anti-inflammatories, physical therapy, and cortisone injections. He wishes to continue with a right total shoulder arthroplasty. HOSPITAL COURSE: Postop day 1 the patient was feeling well. Pain was controlled with p.o. medications. He denied shortness of breath, chest pain, lightheadedness, nausea or vomiting. His planned discharge was to go home with outpatient physical therapy. DISCHARGE CONDITION: Stable. DISPOSITION: Home with self care. MEDICATIONS: Acetaminophen 1000 mg by mouth every 8 hour, Celebrex 200 mg by mouth twice daily, Zofran 8 mg by mouth every 8 hours as needed for nausea, OxyContin 10 mg by mouth every 12 hours, oxycodone 1-2 tablets by mouth every 4 hours as needed for pain, aspirin 81 mg by mouth at bedtime, Lipitor 40 mg by mouth in the morning, vitamin D3 2000 units at bedtime, Pletal 100 mg by mouth twice daily, Plavix 75 mg by mouth daily in the morning, Lopressor 25 mg by mouth twice daily, multivitamin. INSTRUCTIONS: The patient may do exercises as taught in physical therapy while in the hospital. No lifting with his operative arm. He is to schedule outpatient physical therapy 2-3 days after leaving the hospital. He is to wear sling/immobilizer at all times except when performing daily exercises and for hygiene purposes. He is to keep the incision dry with daily dressing changes. He is not to apply any soap, ointment, lotions over the incision directly. He is not to soak the incision in any bathtubs or swimming pools. He may use ice as needed on his operative shoulder. He is to call [facility] if he notices increased shoulder pain, increased swelling or drainage from the incision, shortness of breath or chest pain. He is to follow up with Dr. Ford or his PA in 12-14 days from the date of the surgery. SIVAKUMAR
== END 2016-03-04 12:30 | disposition home or self-care (01) | DRG 483 ==
LOC: ENRESERVTM → ENRESERVDT → C.ACU 08:20 → C.3E 16:05
PROVIDERS: ADMIT Orthopaedic Surgery; ATTEND Orthopaedic Surgery
PROC: 0RRJ0JZ Replacement of Right Shoulder Joint with Synthetic Substitute, Open Approach (ICD-10-PCS; principal; 2016-03-03 11:00)
PROC: 0LS30ZZ Reposition Right Upper Arm Tendon, Open Approach (ICD-10-PCS; principal; 2016-03-03 11:00)
DX: M19.011 Primary osteoarthritis, right shoulder (principal); K21.9 Gastro-esophageal reflux disease without esophagitis; K44.9 Diaphragmatic hernia without obstruction or gangrene; E78.00 Pure hypercholesterolemia, unspecified; I25.2 Old myocardial infarction; I25.10 Atherosclerotic heart disease of native coronary artery without angina pectoris; F17.210 Nicotine dependence, cigarettes, uncomplicated; I73.9 Peripheral vascular disease, unspecified; I10 Essential (primary) hypertension; I35.0 Nonrheumatic aortic (valve) stenosis; M54.5 Low back pain; G89.29 Other chronic pain; Z79.899 Other long term (current) drug therapy; Z79.02 Long term (current) use of antithrombotics/antiplatelets; Z95.5 Presence of coronary angioplasty implant and graft; Z95.828 Presence of other vascular implants and grafts; Z96.642 Presence of left artificial hip joint; Z96.612 Presence of left artificial shoulder joint; Z79.82 Long term (current) use of aspirin; Z86.73 Personal history of transient ischemic attack (TIA), and cerebral infarction without residual deficits